=== PATIENT | male | born 1935 | race Caucasian/White ===

== ENCOUNTER 2016-08-30 04:12 | Day surgery (SDC) | payer MEDICARE, OTHER ==
[2016-08-25 15:39] LABS: HEMATOCRIT 41.4 % (40.0-51.0); HEMOGLOBIN 13.4 g/dL (13.6-17.8)
[2016-08-25 15:47] LABS: BUN (BLOOD UREA NITROGEN) 15 MG/DL (6-23); CHLORIDE, SERUM 101 MMOL/L (96-112); CO2 (CARBON DIOXIDE) 29 MMOL/L (24-34); CREATININE 1.01 MG/DL (0.70-1.30); GFR AFRICAN AMERICAN 80 ML/MIN (>=60); GFR NON AFRICAN AMERICAN 69 ML/MIN (>=60); GLUCOSE, SERUM 110 MG/DL (60-99); POTASSIUM, SERUM 4.2 MMOL/L (3.5-5.3); SODIUM, SERUM 137 MMOL/L (135-148)
--- NOTE | ~2016-08-30 | OP ---
Record Of Operation [facility] [address] [facility] [place] [address] NAME: WESLEY ROBERT : 33 STATUS : [facility]#: [id number] AGE: 81 ADM/REG DATE : 08/30/16 MR#: [id number] REPORT SERV DATE: 08/30/16 DICTATED BY: SONY STEPHENS DATE: 08/30/16 REPORT STATUS : Draft TRANSCRIBED BY: MODL DATE: 08/30/16 DATE OF PROCEDURE: 08/30/2016 PREOPERATIVE DIAGNOSES: Right cuff tear and biceps tendinitis impingement. POSTOPERATIVE DIAGNOSES: Right cuff tear and biceps tendinitis impingement plus severely macerated superior and posterior labral tear, mild degenerative joint disease, and mild chondromalacia. PROCEDURES: Right extensive debridement, subacromial compression, biceps tenotomy, and rotator cuff repair. COMPLICATIONS: None. ANESTHESIA: General endotracheal with regional block. COMPLICATIONS: Intraoperative dysrhythmia. INDICATIONS: This 81-year-old male had severe pain which was longstanding. He failed injections and nonoperative treatment. Due to the severity of his problem, Cardiac clearance was obtained. He was designated as a class 2 risk. He was then cleared for surgery and wished to proceed with operative intervention. After discussion of relevant risks including cardiac or infectious or reprocess or persistent or recurrent pain. DESCRIPTION OF PROCEDURE: The patient was induced in the supine position. He was taken to the beach-chair position with care to maintain the cervical lordosis. A time-out protocol was enforced. Ancef was administered. Posterolateral portals were created for diagnostic arthroscopy, which revealed mild DJD with severe posterior fraying and superior fraying of the labrum and bicipital labral complex with hourglassing and extra-articular and intra-articular biceps tenosynovitis. There was a full-thickness rotator cuff tear of the supraspinatus and infraspinatus with a type 3 acromion. Extensive debridement and biceps tenotomy: We introduced a 5.5 cannula with an outside-in spinal needle technique. We debrided the rotator interval and debrided the biceps intra- articularly and extra-articularly. We released the biceps and allowed it to retract. We performed a biceps tenolysis and allowed it to retract from intra-articular space. We debrided circumferentially the labrum and performed shaving chondroplasty of the humeral head. The posterior labrum had severe fibrillation. This was debrided and ablated. Subacromial decompression: The arthroscopic cannula was then removed from the posterior shoulder and redirected in the subacromial space. The metal trocar was inserted and the cannula was advanced out the anterior superior portal creating an outflow portal with outside in technique. A lateral portal was then created after spinal needle localization and a skin incision was made with an 11-blade. A large 5-5 shaver was then introduced into Record Of Operation [address] [place]. [address] NAME: WESLEY ROBERT : 33 STATUS : [facility] PAT#: [id number] AGE: 81 ADM/REG DATE : 08/30/16 MR#: [id number] REPORT SERV DATE: 08/30/16 DICTATED BY: SONY STEPHENS DATE: 08/30/16 REPORT STATUS : Draft TRANSCRIBED BY: LUIS FELIPE DATE: 08/30/16 the joint from lateral and its tip was well visualized in the bursa. A bursectomy was performed going from lateral to medial allowing visualization of the rotator cuff and undersurface of the acromion. Coagulation was achieved with a 90-degree electrothermal device and the undersurface of the CA ligament was recessed with the tissue ablator. Bur was then introduced laterally and acromioplasty was performed smoothing the acromion from a type I morphology. This was begun laterally and advanced medially. The AC joint was then checked for spurs and these were smoothed. The soft tissue decompression was carried out anteriorly, laterally and superiorly. The scope was then withdrawn and placed into the lateral portal and the cutting-block technique was used with the instrumentation from posterior to assure that a perfect acromioplasty had been performed. Decompression then underwent the final check by forward flexing the arm again to check for impingement. Rotator cuff repair: We went to subacromial space and this was macerated tendon which was full thickness predominantly the supraspinatus, but it went into the infraspinatus. We placed two [employer] triple loaded anchors and passed with an Expressew anteriorly and a [place] hook posteriorly, and we had two anchor medial row at that phase and we were planning on doing a transosseous equivalent technique. However, at this phase, the Anesthesia team indicated to me that they had a rhythm that they were not comfortable with, it was unclear whether the patient had ventricular tachycardia or atrial fibrillation with rapid response or perhaps he was being paced at a higher level than usual. At any rate, we went ahead and just tied the sutures of the medial row and decided to stop the surgery at this phase due to the cardiac manifestation, we closed the wounds with Monocryl and put a dressing and placed the patient in supine position. He subsequently stabilized. There was no overt event after that, he was taken to the PACU in stable condition. POSTOPERATIVE PLAN: Large cuff protocol. We will get a Cardiology assessment in the PACU and assessment of the pacemaker AICD as well. BSS/MODL Sony Stephens M.D. / [id number] CC: Morena Jones
[~2016-08-30 04:12] MED LIST: ACET500CAP PO; C5 PO; COZ25 PO; FLOMAX4 PO; HYDROCORTISONE30 G1 TOP; KLONO5 PO; LAN25 PO; LOP25 PO; SPIRO25 PO
[2016-08-30 05:40] LABS: INTERNATIONAL NORMAL RATI 1.2 UNITS (-); PROTIME (NOT ORD) 14.6 SEC (12.0-14.5)
[2016-08-30 08:52] LABS: CPK 97 U/L (0-200); TROPONIN I <0.02 NG/ML (<0.05)
== END 2016-08-30 13:09 | disposition home or self-care (01) ==
LOC: SDC 04:12
PROVIDERS: Anesthesiology; Orthopaedic Surgery Sports Medicine
PROC: 0LQ14ZZ Repair Right Shoulder Tendon, Percutaneous Endoscopic Approach (ICD-10-PCS; principal; 2016-08-30 05:45)
PROC: 0RNJ4ZZ Release Right Shoulder Joint, Percutaneous Endoscopic Approach (ICD-10-PCS; 2016-08-30 05:45)
PROC: 0RBJ4ZZ Excision of Right Shoulder Joint, Percutaneous Endoscopic Approach (ICD-10-PCS; 2016-08-30 05:45)
DX: M75.121 Complete rotator cuff tear or rupture of right shoulder, not specified as traumatic (principal); M75.41 Impingement syndrome of right shoulder; M75.21 Bicipital tendinitis, right shoulder; M19.011 Primary osteoarthritis, right shoulder; S43.491A Other sprain of right shoulder joint, initial encounter; I10 Essential (primary) hypertension; I48.91 Unspecified atrial fibrillation; J45.909 Unspecified asthma, uncomplicated; G25.81 Restless legs syndrome; M10.9 Gout, unspecified; K64.9 Unspecified hemorrhoids; Z96.652 Presence of left artificial knee joint; Z95.810 Presence of automatic (implantable) cardiac defibrillator; Z90.89 Acquired absence of other organs; Z90.49 Acquired absence of other specified parts of digestive tract; Z88.4 Allergy status to anesthetic agent; Z79.01 Long term (current) use of anticoagulants; Z79.899 Other long term (current) drug therapy; Z98.890 Other specified postprocedural states
CPT/HCPCS: 80048; 82550; 84484; 85014; 85018; 85610; 93005; A9270-GY; C1713; J0690; J2250; J2370; J2405; J2710; J2795; J3010